=== PATIENT | male | born 2000 | race Caucasian/White ===

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

== ENCOUNTER 2018-09-13 21:11 | Emergency (ER) | payer OTHER ==
[~2018-09-13] VITALS: Ht 162.6 cm; Wt 61.2 kg
[2018-09-13 21:22] VITALS: BP 125/72
[2018-09-13] MEDS ORDERED: KETOROLAC 60 MG/2 ML VIAL IM ONE (23:25)
[2018-09-13 23:55] VITALS: BP 125/72
== END 2018-09-13 23:55 | disposition home or self-care (01) ==
LOC: MED 21:11
DX: S60.222A Contusion of left hand, initial encounter (principal); M25.532 Pain in left wrist; Z79.2 Long term (current) use of antibiotics; Y04.0XXA Assault by unarmed brawl or fight, initial encounter; Y93.89 Activity, other specified; Y92.89 Other specified places as the place of occurrence of the external cause; Y99.8 Other external cause status
CPT/HCPCS: 73130; 99283; J1885

== ENCOUNTER 2021-04-23 09:44 | Emergency (ER) | payer OTHER ==
--- NOTE | 2021-04-23 10:22 | NUR ---
CALLED AT 10.15 & 1022 .NO SHOW
--- NOTE | 2021-04-23 12:11 | NUR ---
LEFT WITHOUT BEING SEEN, NAME CALLED, NO ANSWER.
== END 2021-04-23 10:15 | disposition left against medical advice (07) ==
LOC: MED 09:44
DX: Z53.21 Procedure and treatment not carried out due to patient leaving prior to being seen by health care provider (principal)

== ENCOUNTER 2021-08-12 22:19 | Emergency (ER) | payer OTHER ==
--- NOTE | 2021-08-12 23:07 | NUR ---
called pt in lobby and outside, no answer.
--- NOTE | 2021-08-12 23:12 | NUR ---
called pt in lobby and outside no answer.
--- NOTE | 2021-08-12 23:17 | NUR ---
called pt in lobby and outside, no answer.
--- NOTE | 2021-08-12 23:29 | NUR ---
called pt on cell phone stated he is at [facility].
--- NOTE | 2021-08-12 23:30 | NUR ---
PATIENT LEFT WITHOUT BEING SEEN BY DR. ferrari. NO FURTHER CARE PROVIDED FOR PATIENT.
== END 2021-08-12 23:30 | disposition left against medical advice (07) ==
LOC: MED 22:19
DX: Z53.21 Procedure and treatment not carried out due to patient leaving prior to being seen by health care provider (principal)

== ENCOUNTER 2021-09-15 09:50 | Emergency (ER) | payer OTHER ==
[~2021-09-15] VITALS: Ht 162.6 cm; Wt 59.0 kg
[2021-09-15 09:57] VITALS: BP 141/93
--- NOTE | 2021-09-15 09:58 | NUR ---
PT BIBA AND TAKEN TO TENT 01 Addendum: 09/15/21 at 0959 by [email or web address] PT IN TENT 03
--- NOTE | 2021-09-15 10:04 | NUR ---
DR BRYANT EXAMINING PT
[2021-09-15] MEDS ORDERED: LORazepam 1 MG TAB PO ONE (10:10)
--- NOTE | 2021-09-15 10:15 | NUR ---
21Y MALE BIBA FROM HOME DUE TO ANXIETY ATTACK. PER EMS PT AND HIS FAMILY HAVE TESTED POSITIVE FOR COVID RESULTING IN PATIENT EXPERINCING ANXIETY ATTACK. PT STATED HE IS EXPERINCING 7/10 PRESSURE LIKE PAIN IN HIS CHEST AT THIS TIME. BREATH SOUNDS CLEAR, S1/S2 HEARD, AND CAP REFILL <2 SECONDS. PT CURRENTLY A&OX4. PT ADMITS TO HAVING AN ANXIETY ATTACK LIKE THIS BEFORE PMH: ANXIETY NKA
[2021-09-15] MEDS ORDERED: ATA25 PO (11:07)
[2021-09-15 11:13] VITALS: BP 141/93
== END 2021-09-15 11:13 | disposition home or self-care (01) ==
LOC: MED 09:50
DX: F41.9 Anxiety disorder, unspecified (principal); Z79.899 Other long term (current) drug therapy
CPT/HCPCS: 99283

== ENCOUNTER 2023-05-23 09:24 | Emergency (ER) | payer OTHER ==
[~2023-05-23] VITALS: Ht 165.1 cm; Wt 80.7 kg
[~2023-05-23 09:24] MED LIST changes: +ATA25 PO
[2023-05-23 09:45] VITALS: BP 121/91; PULSE 62; RESP 20; TEMP 97.7; O2SAT 100
[2023-05-23] MEDS ORDERED: KETOROLAC 60 MG/2 ML VIAL IM ONE (10:40)
[2023-05-23] MEDS ORDERED: IBUP-2213 PO (10:56)
[2023-05-23] MEDS ORDERED: ONDA8TAB87 PO (10:56)
[2023-05-23 11:15] VITALS: BP 121/91; PULSE 62; RESP 20; TEMP 97.7; O2SAT 100
== END 2023-05-23 11:15 | disposition home or self-care (01) ==
LOC: MED 09:24
DX: R10.11 Right upper quadrant pain (principal); R11.0 Nausea; Z79.899 Other long term (current) drug therapy
CPT/HCPCS: 96372; 99283; J1885

== ENCOUNTER 2023-06-14 20:55 | Emergency (ER) | payer OTHER ==
[~2023-06-14] VITALS: Ht 162.6 cm; Wt 77.1 kg
[~2023-06-14 20:55] MED LIST changes: +IBUP-2213 PO; +ONDA8TAB87 PO
[2023-06-14 21:03] VITALS: BP 146/115; PULSE 88; RESP 16; TEMP 97.8; O2SAT 99
[2023-06-14 21:28] VITALS: O2SAT 98
[2023-06-14 21:39] VITALS: BP 124/83; PULSE 86; RESP 15; O2SAT 98
[2023-06-14] MEDS ORDERED: KETOROLAC 30 MG/ML VIAL IM ONE (22:45)
[2023-06-14] MEDS ORDERED: IBUP-2213 PO (22:52)
== END 2023-06-14 23:13 | disposition home or self-care (01) ==
LOC: MED 20:55
DX: S90.32XA Contusion of left foot, initial encounter (principal); Z79.899 Other long term (current) drug therapy; Z79.1 Long term (current) use of non-steroidal anti-inflammatories (NSAID); W50.0XXA Accidental hit or strike by another person, initial encounter; Y93.89 Activity, other specified; Y92.89 Other specified places as the place of occurrence of the external cause; Y99.8 Other external cause status
CPT/HCPCS: 73630; 96372; 99283; J1885

== ENCOUNTER 2024-06-20 10:40 | Emergency (ER) | payer OTHER ==
[~2024-06-20] VITALS: Ht 162.6 cm; Wt 72.6 kg
[2024-06-20 10:43] VITALS: BP 143/112; PULSE 83; RESP 20; TEMP 98.1; O2SAT 98
[2024-06-20] MEDS: ACETAMINOPHEN EXTRA STRENGTH 500 MG TAB PO ONE (11:21)
[2024-06-20] MEDS: KETOROLAC 30 MG/ML VIAL IM ONE (11:33)
== END 2024-06-20 11:50 | disposition home or self-care (01) ==
LOC: MED 10:40
DX: S60.222A Contusion of left hand, initial encounter (principal); S60.511A Abrasion of right hand, initial encounter; S80.211A Abrasion, right knee, initial encounter; R03.0 Elevated blood-pressure reading, without diagnosis of hypertension; M25.532 Pain in left wrist; Z79.899 Other long term (current) drug therapy; V23.49XA Other motorcycle driver injured in collision with car, pick-up truck or van in traffic accident, initial encounter; Y93.89 Activity, other specified; Y92.410 Unspecified street and highway as the place of occurrence of the external cause; Y99.8 Other external cause status
CPT/HCPCS: 73110; 73130; 99284; J1885